=== PATIENT | female | born 1965 | race Caucasian/White ===

== ENCOUNTER 2023-08-24 01:20 | Emergency (ER) | payer SELFPAY ==
[2023-08-24 01:22] VITALS: BP 211/98
[2023-08-24 01:34] LABS: % Basophils 0.6 % (0-2); % Eosinophils 2.5 % (0-6); % Immature Granulocytes 0.5 % (0-0.5); % Lymphocytes 21.3 % (20.5-51.1); % Monocytes 4.7 % (1.7-9.3); % Neutrophils 70.4 % (42.2-75.2); Absolute Basophils 0.1 10^3/uL (0-0.2); Absolute Eosinophils 0.3 10^3/uL (0-0.7); Absolute Immature Granulocytes 0.1 10^3/uL (0-0.05); Absolute Lymphocytes 2.2 10^3/uL (1.2-3.4); Absolute Monocytes 0.5 10^3/uL (0.1-0.6); Absolute Neutrophils 7.3 10^3/uL (1.4-6.5); Hematocrit 30.9 % (37.0-47.0); Hemoglobin 10.1 g/dL (12.0-16.0); Mean Corp Hgb Conc. 32.7 g/dL (33.0-37.0); Mean Corpuscular Hgb 28.2 pg (27.0-31.0); Mean Corpuscular Volume 86.3 fL (81.0-99.0); Mean Platelet Volume 10.1 fL (7.4-10.4); Nucleated Red Blood Cells % 0 %; Platelet Count 260 10^3/uL (130-400); Red Blood Cell Count 3.58 10^6/uL (4.20-5.40); Red Cell Dist. Width 13.8 % (11.5-14.5); White Blood Cell Count 10.4 10^3/uL (4.8-10.8)
[2023-08-24 01:49] LABS: ALT (SGPT) 13 U/L (0-35); AST (SGOT) 18 U/L (14-36); Albumin 3.8 g/dl (3.5-5.0); Alkaline Phosphatase 92 U/L (38-126); Blood Urea Nitrogen 20 mg/dl (7-17); Calcium 9.5 mg/dl (8.4-10.2); Carbon Dioxide 29 mmol/L (22-30); Chloride 109 mmol/L (98-107); Estimated Creatinine Clearance 93 ml/min; Glucose 153 mg/dl (70-99); Lipase 285 U/L (23-300); Potassium 3.7 mmol/L (3.5-5.1); Sodium 140 mmol/L (135-145); Total Bilirubin 0.3 mg/dl (0.2-1.3); Total Protein 6.2 g/dl (6.3-8.2); eGFR > 60.00
[2023-08-24] MEDS: TORADOL 30 MG IV (01:53)
[2023-08-24] MEDS: PROTONIX IV 40 MG IV (01:53)
[2023-08-24] MEDS: DILAUDID 1 MG IV ×2 (02:16→04:10)
[2023-08-24] MEDS: REGLAN 10 MG IV (02:17)
[2023-08-24] MEDS: NSS 1000 IV (02:18)
[2023-08-24 02:31] LABS: Troponin I < 0.012 ng/ml
--- NOTE | 2023-08-24 02:48 | ED.GENMED ---
History of Present Illness
General
Chief Complaint: Abdominal Pain
Source: patient and ambulance crew
Exam Limitations: none
Time Seen by Provider: 08/24/23 01:57
Nursing documentation reviewed up to this point in time: agreed with
Travel History
Have you had any contact with someone who has COVID-19?: No
Do you have any symptoms of coronavirus? Fever > 100 degrees, chills, cough, shortness of breath, sore throat, loss of taste or smell, muscle aches, or headache?: No
History of Present Illness
History of Present Illness:
This is a 58-year-old woman who has history of hypertension, hypothyroidism, chronic low back pain�narcotic dependent who complains of abrupt onset of severe epigastric abdominal pain that began around 11 PM shortly after consuming cheese cake.
Upper abdominal pain occasionally radiates to her back and initially briefly radiated to her lower substernal region and has been occasionally accompanied with mild nausea without vomiting.
She denies history of similar episodes of pain in the past.
Prior to tonight she had been feeling well. She denies cough nor shortness of breath, no fevers or chills, no diarrhea or constipation.
No prior abdominal surgeries.
Her only daily medications are lisinopril, levothyroxine, methadone 30 mg 3 times daily she is also prescribed as needed oxycodone.
She arrives via EMS and was given IV fentanyl prehospital with mild but only temporary improvement in pain.
Patient states she is currently residing in an air B&B after having recently sold her house in [facility].
Past History
Past History
ED Past Medical History: HTN, Hypothyroidism and Other (Chronic low back pain-narcotic dependent)
ED Past Surgical History: None
Social History
Tobacco: Smoker
Alcohol: None
Drug: None
Living: alone
Employment: Not employed
Family History
Family History: Other (Noncontributory)
Phy Exam
Physical Exam
Physical Exam:
GENERAL: 58-year-old woman appears older than stated age, awake and alert, appears in moderate distress related to pain. Mildly anxious but easily communicative.
EYE: anicteric
NECK: Supple, nontender, no meningismus, no significant adenopathy.
ENT: oral mucosa is moist. No rhinorrhea.
CARDIAC: Regular rate and rhythm. no murmur.
LUNGS: Clear breath sounds bilaterally, no acute respiratory distress, no wheezes/rales/rhonchi
ABDOMEN: Soft, nondistended, moderate tenderness epigastric region as well as mild tenderness right upper quadrant, no r/g, no cvat. normoactive BS.
NEUROLOGICAL: Alert and oriented x3, no focal neuro deficits.
SKIN: Warm and dry, normal color, skin intact. No rash.
MUSCULOSKELETAL: No C/C/E. peripheral pulses are full and equal b/l. No palpable tenderness.
PSYCH: Normal and appropriate interaction.
Course
Orders/Labs/Results
Orders:
Orders
08/24/23 01:28
Complete Blood Count/With Diff Urgent
Comprehensive Metabolic Panel Urgent
Lipase Urgent
08/24/23 01:50
Electrocardiogram (*1) Urgent
Reason for Study: Abdominal Pain
EKG- Treatment ONCE
Ketorolac [Toradol] 30 mg IV NOW STA
Pantoprazole [Protonix IV] 40 mg IV NOW STA
08/24/23 01:58
Troponin I Urgent
08/24/23 02:10
0.9% Sodium Chloride 1000 ml [Nss] 1,000 ml IV 250 mls/hr
HYDROmorphone [Dilaudid] 1 mg IV NOW STA
Metoclopramide [Reglan] 10 mg IV NOW STA
08/24/23 02:11
US Abdomen Complete/Upper Urgent
Comment:
Reason For Exam: acute severe upper abd pain
08/24/23 03:42
Diphenhydramine [Benadryl] 50 mg IV NOW STA
Hydrocortisone Sod Succinate [Solu-Cortef] 200 mg IV NOW STA
Iohexol [Omnipaque] See Protocol PO NOW STA
08/24/23 03:45
CT Abd/pel W Iv And Oral Contr Urgent
Comment:
Reason For Exam: acute upper abd pain
08/24/23 04:05
HYDROmorphone [Dilaudid] 1 mg .ROUTE .STK-MED ONE
08/24/23 04:06
Ondansetron Injectable [Zofran] 4 mg .ROUTE .STK-MED ONE
08/24/23 04:07
Ondansetron Injectable [Zofran] 4 mg IV NOW STA
08/24/23 04:10
HYDROmorphone [Dilaudid] 1 mg IV NOW STA
08/24/23 06:19
Metoprolol [Lopressor] 5 mg IV NOW STA
08/24/23 06:30
Lactic Acid Urgent
Abnormal Lab Results
08/24/23
01:28
RBC 3.58 L 10^6/uL
(4.20-5.40)
Hgb 10.1 L g/dL
(12.0-16.0)
Hct 30.9 L %
(37.0-47.0)
MCHC 32.7 L g/dL
(33.0-37.0)
Abs Immat Gran (auto) 0.1 H 10^3/uL
(0-0.05)
Absolute Neuts (auto) 7.3 H 10^3/uL
(1.4-6.5)
Chloride 109 H mmol/L
(98-107)
BUN 20 H mg/dl
(7-17)
Glucose 153 H mg/dl
(70-99)
Total Protein 6.2 L g/dl
(6.3-8.2)
08/24/23 01:28
08/24/23 01:28
Vital Signs
Initial and Last Documented VS:
Initial Vital Signs
Temp Pulse Resp BP Pulse Ox
97.6 F 61 16 211/98 98
08/24/23 01:22 08/24/23 01:22 08/24/23 01:22 08/24/23 01:22 08/24/23 01:22
Last Documented Vital Signs
Temp Pulse Resp BP Pulse Ox
97.6 F 77 14 169/84 99
08/24/23 01:22 08/24/23 06:30 08/24/23 06:30 08/24/23 06:23 08/24/23 05:45
MDM/Problems Addressed
Differential Diagnosis Includes:
Concern for acute cholecystitis, acute pancreatitis, acute gastroduodenitis. Other consideration is ACS, GERD, bowel obstruction, colitis, AAA.
Will medicate for pain and nausea, initiate IV fluids, IV Protonix.
Will check EKG as well as troponin.
Thus far labs are unremarkable with normal LFTs, normal lipase, normal CBC save for mild anemia.
Will plan for abdominal ultrasound.
Chronic conditions affecting care: HTN and Other (Chronic pain-narcotic dependent)
*Radiology
Radiology exam reviewed: radiology read reviewed
*Pulse Oximetry
Patient hypoxic: no
*EKG
Interpreted by ED Provider?: Yes
Interpretation: normal
Comparison EKG: no comparison EKG present
Rate: normal
Rhythm: sinus
[place]: normal axis
Interval: normal interval
QRS Pattern: normal QRS
Ischemia: no ischemia
*Pumping Station Supervisor Interpretation
Rate: normal
Interpretation: normal
Rhythm: sinus
*Critical Care Note
Total Time (30-74mins, 75-104mins- exclusive of procedures): Not Applicable
Update Note
Update Note:
Abdominal ultrasound is unremarkable.
Patient is more comfortable but continues with moderate pain. Remains hypertensive but improving.
Will check CT abdomen pelvis with oral and IV contrast.
08/24/2023 04:00 AM
Patient unable to tolerate oral contrast. After 1 sip developed severe recurrent epigastric pain and nausea, shortly after has vomited a small amount of clear liquid.
She has been prepped for IV contrast allergy with Benadryl and Solu-Cortef. Will continue IV pain medication and antiemetics and will plan for CT abdomen pelvis with IV contrast.
08/24/2023 07:05 AM
CAT scan shows hiatal hernia with gastric volvulus and acute gastric outlet obstruction.
Case discussed with general surgery as well as GI. Recommend NG tube which has been placed by myself without difficulty.
NG tube currently draining clear fluid.
Plan is to admit to hospitalist service and continue to observe but patient elects to sign out AMA. She states she has to go home and care for her dog who has been in the crate all night long. She has been unsuccessful in contacting any family or
friends. She request to go home, take care of her dog and then plans to return to the ED.
Lengthy discussion regarding potential risks of leaving the hospital including risk of ischemic bowel, perforation, sepsis, , she understands these risks and plans to return once her dog is cared for.
NG tube and IV have been removed.
Patient has signed out AGAINST MEDICAL ADVICE.
ED Attending Note
-
Portions of this chart may have been created with voice recognition software.� Occasional wrong word or��sound alike� substitutions may have occurred due to the inherent limitations of voice recognition software.
Discharge Plan
Departure
Patient Disposition: Against Medical Advice
Date of Disposition: 08/24/23
Time of Disposition: 07:05
Condition: Serious
Discharge Problem:
hiatal hernia with gastric volvulus, gastric volvulus with gastric outlet obs
Instructions: Hiatal Hernia (DC), Gastric Outlet Obstruction, Adult
Prescriptions:
No Action
methadone 40 mg Tablet,Soluble
40 mg PO DAILY
lisinopril 30 mg Tablet
30 mg PO DAILY
levothyroxine [Synthroid] 200 mcg Tablet
200 mcg PO DAILY
oxycodone 10 mg Tablet
10 mg PO Q4H PRN (Reason: pain )
Referrals:
NONE,* [Family Provider] -
Activity Restrictions/Additional Instructions:
We recommend you return to the ED for further evaluation/treatment of acute gastric volvulus (twisting) of your stomach causing an obstruction.
Interventions
Interventions:
*Risk Screen - Suicide Last Done: 08/24/23 01:22
*General Assessment Last Done: 08/24/23 01:22
*Neglect/Abuse Screening Last Done: 08/24/23 01:22
ED- Fall Risk Assessment Last Done: 08/24/23 02:05
*ED COVID-19 Vaccine History Last Done: 08/24/23 01:22
[id number] Assessment Last Done: 08/24/23 02:05
Discharge Date and Time
Print Language: NAMIBIAN
[2023-08-24] MEDS: OMNIPAQUE 50 ML PO (03:52)
[2023-08-24 03:55] VITALS: BP 191/92
[2023-08-24] MEDS: ZOFRAN 4 MG IV (04:07)
[2023-08-24] MEDS: BENADRYL 50 MG IV (04:58)
[2023-08-24] MEDS: SOLU-CORTEF 200 MG IV (04:58)
[2023-08-24 06:15] VITALS: BP 169/84
[2023-08-24] MEDS: LOPRESSOR 5 MG IV (06:23)
[2023-08-24 07:00] VITALS: BP 186/98
[2023-08-24 07:10] LABS: Lactic Acid 2.2 mmol/L (0.7-2.0)
--- NOTE | 2023-08-24 07:11 | EDRN ---
Patient leaving AMA because she needs to take care of her dog. Patient stated that she's unable to get in touch with her brother to take the dog. NGT removed. Patient instructed by .
[2023-08-24 07:14] VITALS: BP 186/98
== END 2023-08-24 07:16 | disposition left against medical advice (07) ==
LOC: EMR 01:20
PROVIDERS: EMERGENCY PHYSICIAN Emergency Medicine
DX: K44.9 Diaphragmatic hernia without obstruction or gangrene (principal); K31.89 Other diseases of stomach and duodenum; I10 Essential (primary) hypertension; G89.29 Other chronic pain; F17.200 Nicotine dependence, unspecified, uncomplicated; D64.9 Anemia, unspecified
CPT/HCPCS: 99285; 96374; 96375 ×6; 96361 ×4; 96376; 74177; 76700; 80053; 83605; 83690; 84484; 85025; 93005; Q9967